=== PATIENT | female | born 1990 | race Caucasian/White ===

== ENCOUNTER 2016-12-10 10:52 | Emergency (ER) | payer OTHER ==
[~2016-12-10] VITALS: Ht 152.4 cm; Wt 42.3 kg
[2016-12-10 10:56] VITALS: BP 137/91; PULSE 63; RESP 16; O2SAT 100
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
[2016-12-10 12:28] VITALS: BP 131/87; PULSE 57; RESP 14; O2SAT 98
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
[2016-12-10] MEDS ORDERED: Trimethoprim-Sulfa 160 mg-800 mg Tablet PO ONE (13:05)
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
== END 2016-12-10 14:12 | disposition home or self-care (01) ==
LOC: SED 10:52
DX: S09.90XA Unspecified injury of head, initial encounter (principal); N39.0 Urinary tract infection, site not specified; Y04.0XXA Assault by unarmed brawl or fight, initial encounter; Y93.89 Activity, other specified; Y92.009 Unspecified place in unspecified non-institutional (private) residence as the place of occurrence of the external cause; Y99.8 Other external cause status; F17.200 Nicotine dependence, unspecified, uncomplicated
CPT/HCPCS: 70450; 70486; 81025; 96372; 99284; Q0177